=== PATIENT | male | born 1995 | race African-American/Black ===

== ENCOUNTER 2017-10-18 11:35 | Emergency (ER) | payer SELFPAY ==
--- NOTE | 2017-10-18 13:01 | RAD REPORT ---
EXAM DESCRIPTION: RAD - Chest Pa And Lat (2 Views) - 10/18/2017 12:53 pm CLINICAL HISTORY: COUGH Chest pain. COMPARISON: Chest Single View dated 10/31/2015 FINDINGS: The lungs are clear. The heart is normal in size. No displaced fractures. IMPRESSION: No acute or concerning finding suspected.
--- NOTE | 2017-10-18 13:36 | EDPHYS ---
Physician Documentation [facility] Name: Blair Sher Age: 21 yrs Sex: Male : 1995 Arrival Date: 10/18/2017 Time: 11:40 Bed 17 Private MD: None, None ED Physician Luis Fernando Rondon HPI: 10/18 12:29 This 21 yrs old Black Male presents to ER via Ambulatory with complaints of Nausea, jmm Sinus Congestion. 12:29 The patient or guardian reports cough. Onset: The symptoms/episode began/occurred jmm gradually, 3 day(s) ago. Modifying factors: The symptoms are alleviated by nothing. the symptoms are aggravated by nothing. Associated signs and symptoms: Pertinent positives: nausea, sore throat. This is a 21 year old male with no chronic medical conditions that presents to the ED with sore throat, congestion, cough, beginning apprx 3 days ago. Son has similar symptoms. also complains of nausea but denies diarrhea or abdominal pain. . Historical: - Allergies: 11:42 PENICILLINS; sr5 - Home Meds: 11:42 None [Active]; sr5 - PMHx: 11:42 None; sr5 - PSHx: 11:42 None; sr5 - Immunization history:: Adult Immunizations up to date. - Social history:: Smoking status: Patient uses tobacco products, smokes one-half pack cigarettes per day. - Ebola Screening: : Patient negative for fever greater than or equal to 101.5 degrees Fahrenheit, and additional compatible Ebola Virus Disease symptoms. ROS: 12:29 Eyes: Negative for injury, pain, redness, and discharge. jmm 12:29 Neck: Negative for injury, pain, and swelling, Cardiovascular: Negative for chest pain, palpitations, and edema. 12:29 Constitutional: Positive for malaise. 12:29 ENT: Positive for sinus congestion, sore throat. 12:29 Respiratory: Positive for cough. 12:29 Abdomen/GI: Positive for nausea, Negative for abdominal pain, vomiting, diarrhea. 12:29 All other systems are negative. Exam: 12:29 Head/Face: atraumatic. jmm 12:29 Constitutional: The patient appears in no acute distress, alert, awake. 12:29 ENT: TM's: are normal, Posterior pharynx: Airway: normal, Uvula: normal, erythema, that is mild, post nasal drip noted. 12:29 Chest/axilla: Inspection: normal. 12:29 Cardiovascular: Rate: normal, Rhythm: regular. 12:29 Respiratory: the patient does not display signs of respiratory distress, Respirations: normal, Breath sounds: are clear throughout. 12:29 Abdomen/GI: Inspection: abdomen appears normal, Bowel sounds: normal, Palpation: abdomen is soft and non-tender. 12:29 Back: ROM is normal. 12:29 Skin: Appearance: Color: normal in color. 12:29 Neuro: Orientation: is normal, Mentation: is normal, Memory: is normal. 12:29 Psych: Behavior/mood is pleasant, cooperative. Vital Signs: 11:42 BP 146 / 97; Pulse 70; Resp 18; Temp 99.0(O); Pulse Ox 99% on R/A; Weight 102.06 kg sr5 (R); Height 5 ft. 5 in. (165.10 cm); Pain 6/10; 13:00 BP 136 / 85; Pulse 65; Resp 18; Pulse Ox 99% on R/A; em 11:42 Body Mass Index 37.44 (102.06 kg, 165.10 cm) sr5 MDM: 12:27 Patient medically screened. [facility] 13:13 Data reviewed: vital signs, nurses notes, lab test result(s). [facility] 13:35 Counseling: I had a detailed discussion with the patient and/or guardian regarding: the [facility] historical points, exam findings, and any diagnostic results supporting the discharge/admit diagnosis, the need for outpatient follow up, to return to the emergency department if symptoms worsen or persist or if there are any questions or concerns that arise at home. 13:35 ED course: Patient is alert and non toxic in appearance in the ED. Patient prescribed [facility] oral antibiotics. Advised to return to the ED if symptoms worsen. . 10/18 12:27 Order name: Strep; Complete Time: 13:34 [facility] 10/18 12:27 Order name: Influenza Screen (a \T\ B); Complete Time: 13:34 [facility] 10/18 12:27 Order name: Chest Pa And Lat (2 Views) XRAY; Complete Time: 13:03 [facility] Administered Medications: No medications were administered Disposition: 18:21 Co-signature as Attending Physician, Luis Fernando Rondon MD. rn Disposition: 10/18/17 13:35 Discharged to Home. Impression: Streptococcal pharyngitis. - Condition is Stable. - Discharge Instructions: Pharyngitis. - Prescriptions for Clindamycin HCl 300 mg Oral Capsule - take 1 capsule by ORAL route every 6 hours for 10 days; 40 capsule. - Medication Reconciliation Form, Thank You Letter, Antibiotic Education, Prescription Opioid Use form. - Follow up: Private Physician; When: 2 - 3 days; Reason: Recheck today's complaints, Continuance of care, Re-evaluation by your physician. Signatures: Dispatcher [employer] EDMS Lavelle Kim PA PA jmm Munoz, Edgar, RETAIL SERVICE TECHNICIAN RETAIL SERVICE TECHNICIAN Luis Fernando Branham MD MD rn Resecker, Darrick RN RN sr5 Corrections: (The following items were deleted from the chart) 13:52 13:35 10/18/2017 13:35 Discharged to Home. Impression: Streptococcal pharyngitis. em Condition is Stable. Forms are Medication Reconciliation Form, Thank You Letter, Antibiotic Education, Prescription Opioid Use. Follow up: Private Physician; When: 2 - 3 days; Reason: Recheck today's complaints, Continuance of care, Re-evaluation by your physician. silvina
--- NOTE | 2017-10-18 13:36 | ER ---
Nurse's Notes [facility] Name: Blair Sher Age: 21 yrs Sex: Male : 1995 Arrival Date: 10/18/2017 Time: 11:40 Bed 17 Private MD: None, None Diagnosis: Streptococcal pharyngitis Presentation: 10/18 11:41 Presenting complaint: Patient states: sore throat, nausea, and sinus pressure x several sr5 days. Transition of care: patient was not received from another setting of care. Onset of symptoms was October 15, 2017. Risk Assessment: Do you want to hurt yourself or someone else? Patient reports no desire to harm self or others. Initial Sepsis Screen: Does the patient meet any 2 criteria? No. Patient's initial sepsis screen is negative. Does the patient have a suspected source of infection? No. Patient's initial sepsis screen is negative. Care prior to arrival: None. 11:41 Acuity: PATTI 3 sr5 11:41 Method Of Arrival: Ambulatory sr5 Triage Assessment: 11:42 General: Appears in no apparent distress. Behavior is calm, cooperative. Pain: sr5 Complains of pain in neck. Neuro: No deficits noted. Cardiovascular: No deficits noted. Respiratory: No deficits noted. GI: Reports nausea. Historical: - Allergies: 11:42 PENICILLINS; sr5 - Home Meds: 11:42 None [Active]; sr5 - PMHx: 11:42 None; sr5 - PSHx: 11:42 None; sr5 - Immunization history:: Adult Immunizations up to date. - Social history:: Smoking status: Patient uses tobacco products, smokes one-half pack cigarettes per day. - Ebola Screening: : Patient negative for fever greater than or equal to 101.5 degrees Fahrenheit, and additional compatible Ebola Virus Disease symptoms. Screenin:55 Abuse screen: Denies threats or abuse. Nutritional screening: No deficits noted. em Tuberculosis screening: No symptoms or risk factors identified. Fall Risk None identified. Assessment: 13:00 General: Appears in no apparent distress. comfortable, Behavior is calm, cooperative. em Pain: Denies pain. Complains of pain in throat Pain currently is 6 out of 10 on a pain scale. Neuro: Level of Consciousness is awake, alert, obeys commands, Oriented to person, place, time, situation. Cardiovascular: Heart tones S1 S2 present Capillary refill < 3 seconds Patient's skin is warm and dry. Respiratory: Airway is patent Respiratory effort is even, unlabored, Respiratory pattern is regular, symmetrical, Breath sounds are clear bilaterally. GI: Abdomen is flat, Reports nausea, Patient currently denies diarrhea, vomiting. : No signs and/or symptoms were reported regarding the genitourinary system. EENT: Throat is clear is pink. Derm: Skin is intact, Skin is pink, warm \T\ dry. Musculoskeletal: Range of motion: intact in all extremities. 13:25 Reassessment: Patient appears in no apparent distress at this time. I agree with above iw assessment by Kelvin Chatman LVN. Vital Signs: 11:42 BP 146 / 97; Pulse 70; Resp 18; Temp 99.0(O); Pulse Ox 99% on R/A; Weight 102.06 kg sr5 (R); Height 5 ft. 5 in. (165.10 cm); Pain 6/10; 13:00 BP 136 / 85; Pulse 65; Resp 18; Pulse Ox 99% on R/A; em 11:42 Body Mass Index 37.44 (102.06 kg, 165.10 cm) sr5 ED Course: 11:40 Patient arrived in ED. sb2 11:40 None, None is Private Physician. sb2 11:42 Triage completed. sr5 11:42 Arm band placed on. sr5 12:10 Lavelle Kim PA is PHCP. jmm 12:10 Luis Fernando Rondon MD is Attending Physician. jmm 12:50 Kelvin Chatman LVN is Primary Nurse. em 12:54 Chest Pa And Lat (2 Views) XRAY In Process Unspecified. EDMS 12:55 Patient has correct armband on for positive identification. Bed in low position. Call em light in reach. 12:55 No provider procedures requiring assistance completed. em 13:50 Patient did not have IV access during this emergency room visit. em Administered Medications: No medications were administered Outcome: 13:35 Discharge ordered by MD. jmm 13:50 Discharged to home ambulatory. em 13:50 Condition: good 13:50 Discharge instructions given to patient, Instructed on discharge instructions, follow up and referral plans. medication usage, Demonstrated understanding of instructions, follow-up care, medications, Prescriptions given X 1. 13:52 Patient left the ED. em Signatures: Dispatcher [employer] EDLavelle Sharp PA PA jmm Kelvin Chatman, SEROLOGIST SEROLOGIST Michelle Morales, RN RN Darrick Morales RN RN sr5 Priscilla Fuentes sb2
== END 2017-10-18 13:52 | disposition home or self-care (01) ==
LOC: ER 11:35
DX: J02.0 Streptococcal pharyngitis (principal); F17.210 Nicotine dependence, cigarettes, uncomplicated; Z88.0 Allergy status to penicillin
CPT/HCPCS: 71046; 87081; 87804; 99283